=== PATIENT | male | born 1955 | race Caucasian/White ===

== ENCOUNTER 2016-05-28 16:48 | Emergency (ER) | payer OTHER ==
[~2016-05-28] VITALS: Ht 180.3 cm; Wt 129.3 kg
--- NOTE | 2016-05-28 17:23 | ED GENERAL ADULT ---
History of Present Illness General Chief Complaint: General Adult Stated Complaint: TRISHA CLOGGED PICC LINE Source: patient, family () Exam Limitations: no limitations Vital Signs & Intake/Output Vital Signs & Intake/Output Vital Signs Date Time Temp Pulse Resp B/P Pulse O2 O2 Flow FiO2 Ox Delivery Rate 05/28 1856 97.7 97 18 111/60 97 Room Air 05/28 1710 96.4 93 18 122/64 96 Room Air Allergies Coded Allergies: NO KNOWN ALLERGIES (05/20/11) Triage Note: 60 Y/O MALE TRISHA FROM HOME FOR CLOGGED PICC LINE PER PT VISITING NURSE CAME TO ADMINISTER MEDICATION AND NOTED THE LINE TO BE CLOGGED AND NOT FLUSING AND PT IS IN NEED OF HIS ABT FOR S/P RT FOOT SX. PT HAS NO OTHER COMPLAINTS Triage Nurses Notes Reviewed? yes HPI: This patient is a 60-year-old male who had a recent right foot operation for infection and PICC line placement at [facility] who is brought into the emergency department today by ambulance accompanied by his for evaluation of clogged PICC line. The patient reported that he has been getting heparin and daptomycin through his PICC line. His visiting nurse came today and was unable to give him his medication because it is clogged. The patient reported that he is currently getting over the flu. He denied any chest pain, difficulty breathing, fevers, chills, abdominal pain, nausea, or vomiting. (AUSTIN GUZMAN PA-C) Past History Travel History Traveled to [place] past 21 day No Medical History Any Pertinent Medical History? see below for history Cardiovascular: hypertension, hyperlipidemia Endocrine: diabetes Surgical History Surgical History: foot surgery, PICC line Psychosocial History What is your primary language Wallisian Tobacco Use: Current Daily Use Daily Tobacco Use Amount/Type: => 5 Cigarettes daily ETOH Use: denies use Illicit Drug Use: denies illicit drug use Family History Hx Contributory? No (AUSTIN GUZMAN PA-C) Review of Systems Review of Systems Constitutional: Reports: no symptoms. EENTM: Reports: no symptoms. Respiratory: Reports: no symptoms. Cardiovascular: Reports: no symptoms. GI: Reports: no symptoms. Musculoskeletal: Reports: no symptoms. Skin: Reports: no symptoms. Neurological/Psychological: Reports: no symptoms. All Other Systems: Reviewed and Negative (AUSTIN GUZMAN PA-C) Physical Exam Physical Exam General Appearance: well developed/nourished, no apparent distress, alert, awake Comments: Well-developed well-nourished person in no acute distress HEENT: Normal EENT exam, head normocephalic, moist mucous membranes Pupils equally round and reactive to light. Neck: Supple, no lymphadenopathy Back: Normal inspection Cardiovascular: Regular rate and rhythm with no murmurs, rubs, or gallops Respiratory: Chest nontender. No respiratory distress. Breath sounds clear to auscultation bilaterally with no wheezes, rales, rhonchi Extremity: Normal and equal pulses Neuro: Alert oriented x3, cranial nerves II through XII grossly intact. Skin: No appreciable rash on exposed skin, skin is warm and dry. PICC line in place to the right chest with no surrounding erythema or edema Psych: Mood and affect is normal Core Measures ACS in differential dx? No CVA/TIA Diagnosis: No Severe Sepsis Present: No Septic Shock Present: No (AUSTIN GUZMAN PA-C) Progress Differential Diagnoses I considered the following diagnoses in my evaluation of the patient: [Clogged PICC line, incision site infection, ACS, PE, influenza] Plan of Care: Current Medications Sig/Kindra Start time Last Medication Dose Stop Time Status Admin Alteplase, 2 MG ONCE ONE 05/28 1729 AC Recombinant 05/28 173 (Cathflo 2MG Inj) Initial ED EKG: none Comments: 05/28/2016 5:22:19 PM: I discussed this patient with Dr. Hansen. He is requesting that we give this patient Cathflo through the PICC line to unclog it. (AUSTIN GUZMAN PA-C) Departure Departure Disposition: HOME OR SELF CARE Condition: Stable Clinical Impression Primary Impression: Occluded PICC line Qualifiers: Encounter type: initial encounter Qualified Code: T82.898A - Other specified complication of vascular prosthetic devices, implants and grafts, initial encounter Referrals: GOLDY FUENTES MD (PCP/Family) Additional Instructions: Continue to take all medications as previously directed. Please call to make a follow-up appointment with your primary care physician. Return for any worsening symptoms or concerns. Departure Forms: Customer Survey General Discharge Information (AUSTIN GUZMAN PA-C) PA/DIRECTOR OF ANALYTICAL DEVELOPMENT Co-Sign Statement Statement: ED Attending supervision documentation- [] I saw and evaluated the patient. I have also reviewed all the pertinent lab results and diagnostic results. I agree with the findings and the plan of care as documented in the PA's/DIRECTOR OF ANALYTICAL DEVELOPMENT's documentation. [x] I have reviewed the ED Record and agree with the PA's/DIRECTOR OF ANALYTICAL DEVELOPMENT's documentation. [] Additions or exceptions (if any) to the PAs/DIRECTOR OF ANALYTICAL DEVELOPMENT's note and plan are summarized below: [] (MIMA HANSEN DO) Critical Care Note Critical Care Note Critical Care Time: non-applicable (MEGAN VIDALES,AUSTIN)
[2016-05-28 18:56] VITALS: BP 111/60
== END 2016-05-28 18:58 ==
LOC: ERH 16:48
DX: T82.898A Other specified complication of vascular prosthetic devices, implants and grafts, initial encounter (principal)
CPT/HCPCS: J2997